=== PATIENT | male | born 1995 | race Caucasian/White ===

== ENCOUNTER 2017-01-07 14:34 | Emergency (ER) | payer BC ==
--- NOTE | 2017-01-07 14:52 | EDM.PDOC ---
ED HPI GENERAL MEDICAL PROBLEM - General Stated Complaint: INJURED R THUMB Time Seen by Provider: 01/07/17 14:39 Source of Information: Reports: Patient History Limitations: Reports: No Limitations - History of Present Illness INITIAL COMMENTS - FREE TEXT/NARRATIVE: Patient presents with injury to right thumb that happened about 10 minutes prior to arrival when he got his thumb pinched/crushed in a hydraulic endgate on a grain cart. No numbness and can wiggle the thumb, but hurts when he tries to flex the IP joint. No other injuries. Last tetanus was August 2009 from clinic records. - Related Data Allergies Allergy/AdvReac Type Severity Reaction Status Date / Time No Known Drug Allergies Allergy Cannot Verified 01/07/17 15:03 Remember Home Meds: Home Meds Fludrocortisone Acetate [Fludrocortisone Acetate] 1.5 tab PO DAILY 11/04/14 [ History] predniSONE [Prednisone] 5 mg PO BID 09/28/15 [History] Past Medical History - Past Health History Medical/Surgical History: Denies Medical/Surgical History Other HEENT History: wisdom teeth out Gastrointestinal History: Reports: Other (See Below) Other Gastrointestinal History: upset stomach and diarrhea x 7 days Musculoskeletal History: Reports: Other (See Below) Other Musculoskeletal History: arm fracture with pins Endocrine/Metabolic History: Reports: Other (See Below) Other Endocrine/Metabolic History: adrenal hyperplasia since - Infectious Disease History Infectious Disease History: Reports: None - Past Surgical History Other HEENT Surgeries/Procedures: surgery to open sagital suture at 6 months old. Endocrine Surgical History: Reports: None Musculoskeletal Surgical History: Reports: None Social & Family History - Tobacco Use Smoking Status *Q: Never Smoker - Alcohol Use Days Per Week of Alcohol Use: 0 - Recreational Drug Use Recreational Drug Use: No Review of Systems - Review of Systems Review Of Systems: See Below Constitutional: Denies: Chills, Fever, Weakness Eyes: Denies: Vision Change Ears: Denies: Dizziness Nose: Denies: Epistaxis Mouth/Throat: Denies: Painful Swallowing Respiratory: Denies: Shortness of Breath, Cough Cardiovascular: Denies: Chest Pain, Syncope GI/Abdominal: Denies: Abdominal Pain, Nausea, Vomiting Musculoskeletal: Reports: Hand Pain. Denies: Neck Pain, Shoulder Pain, Arm Pain , Back Pain, Leg Pain Skin: Denies: Cyanosis, Jaundice, Mottled, Pallor, Diaphoresis Neurological: Denies: Confusion, Dizziness, Headache, Numbness, Seizure, Syncope ED EXAM, GENERAL - Physical Exam Exam: See Below Exam Limited By: No Limitations General Appearance: Alert, WD/WN, No Apparent Distress Eye Exam: Bilateral Eye: EOMI, Normal Inspection, PERRL Ears: Normal External Exam, Hearing Grossly Normal Nose: Normal Inspection, No Blood Throat/Mouth: Normal Lips, Normal Voice, No Airway Compromise Head: Atraumatic, Normocephalic Neck: Full Range of Motion Respiratory/Chest: No Respiratory Distress, Lungs Clear, Normal Breath Sounds Cardiovascular: Regular Rate, Rhythm, No Murmur Back Exam: Full Range of Motion Extremities: Other (Right thumb has open wound at mid volar proximal phalanx. Sensation and cap refill are good throughout. It hurts to flex IP joint at all but patient can wiggle the whole thumb a little. No significant deformity is evident. The skin appears viable. ) Course - Orders/Labs/Meds Orders: Active Orders 24 hr Category Date Time Status Hand Comp Min 3V Rt [CR] Stat Exams 01/07/17 14:45 Ordered - Re-Assessments/Exams Free Text/Narrative Re-Assessment/Exam: 01/07/17 15:20 Xrays reveal a moderately displaced comminuted fracture of the distal 1/3 of proximal phalanx of right thumb involving the IP joint space. This is an open fracture. Patient has been soaking thumb in Hibiclens solution for more than 30 minutes in ER and declines anything for pain control at this time. He says his last food or drink was 1130 this morning. I discussed this with Dr. Frazier (orthopedic/hand) in [facility] who accepted patient for transfer via private vehicle. Patient is given TDAP and 2 g of ancef IV here in ER prior to discharge. Patient strictly instructed to remain NPO until he gets to the [facility]. His mother is here and will be driving him. Departure - Departure Time of Disposition: 15:15 Disposition: Home, Self-Care 01 Condition: Good Clinical Impression: Open fracture of right thumb Qualifiers: Encounter type: initial encounter Phalanx: proximal Fracture alignment: displaced Qualified Code(s): S62.511B - Displaced fracture of proximal phalanx of right thumb, initial encounter for open fracture - Discharge Information Referrals: Bishop Ervin MD [Primary Care Provider] - Additional Instructions: 1. Go directly to the ER at the [facility] in [place] where they will call Dr. Frazier (orthopedic/hand surgeon) to come in and see you. You won't be an ER patient there. 2. Don't eat or drink anything before you arrive there. - My Orders Last 24 Hours: My Active Orders 01/07/17 14:45 Hand Comp Min 3V Rt [CR] Stat - Assessment/Plan Last 24 Hours: My Active Orders 01/07/17 14:45 Hand Comp Min 3V Rt [CR] Stat
[2017-01-07] MEDS ORDERED: ceFAZolin 2 GM in Sodium Chloride 0.9% 50 ML IV ONE (15:10)
[2017-01-07] MEDS ORDERED: Diphtheria,Pertussis(Acell),Tetanus Vaccine 0.5 ML SDV IM ONE (15:15)
[2017-01-07] MEDS ORDERED: Sodium Chloride 0.9% 500 ML ONE (15:17)
[2017-01-07 20:56] VITALS: BP 140/88
[2017-01-10] MEDS ORDERED: Sodium Chloride 0.9% 500 ML IV SCH (16:30)
== END 2017-01-07 15:50 | disposition home or self-care (01) ==
LOC: KA.ED 14:34
DX: S62.511B Displaced fracture of proximal phalanx of right thumb, initial encounter for open fracture (principal); Z23 Encounter for immunization; Z79.899 Other long term (current) drug therapy; W23.0XXA Caught, crushed, jammed, or pinched between moving objects, initial encounter
CPT/HCPCS: 73140; 90471; 90715; 96365; 99283; J0690; J7040; J7050

== ENCOUNTER 2020-04-01 20:15 | Emergency (ER) | payer BC, OTHER ==
[2020-04-01] MEDS ORDERED: Sodium Chloride 0.9% 10 ML Syringe FLUSH PRN (20:26)
[2020-04-01 20:32] VITALS: BP 130/92; PULSE 79
[2020-04-01] MEDS: Sodium Chloride 0.9% 1,000 ML IV ONE (20:38)
--- NOTE | 2020-04-01 20:43 | EDM.PDOC ---
ED HPI GENERAL MEDICAL PROBLEM - General Chief Complaint: General Stated Complaint: dehydrated Time Seen by Provider: 04/01/20 20:43 Source of Information: Reports: Patient - History of Present Illness INITIAL COMMENTS - FREE TEXT/NARRATIVE: Cesar, 24-year-old male, presents to the emergency department with a complaint of dehydration. He has congenital adrenal hyperplasia and in general has been doing quite well. He states he has felt getting dehydrated the past day and late today this evening started developing generalized body aches and feelings of dehydration similar to his event 2 years ago when he required IV fluid. He has been sipping on Gatorade and trying to drink enough water, but feels he is not able to maintain his balance and intake. Urine may be slightly darker, denying any cramping or pain. Denies any COVID-19 symptoms, states he was tested 2 weeks ago and was negative at that time, with no known exposure or risks since then. He is compliant on his steroid medication and denies any recent illness that would have precipitated dehydration. Onset: Today, Gradual Duration: Hour(s):, Getting Worse Location: Reports: Generalized Quality: Reports: Ache Severity: Moderate Improves with: Reports: None Worsens with: Reports: None Context: Reports: Other Associated Symptoms: Reports: No Other Symptoms - Related Data Allergies Allergy/AdvReac Type Severity Reaction Status Date / Time No Known Drug Allergies Allergy Cannot Verified 04/01/20 20:33 Remember Home Meds: Home Meds Fludrocortisone Acetate 1 tab PO DAILY 11/04/14 [History] predniSONE [Prednisone] 5 mg PO BID 09/28/15 [History] Potassium Chloride 20 meq PO DAILY 7 Days #7 tablet.er 04/01/20 [Rx] Past Medical History - Past Health History Medical/Surgical History: Denies Medical/Surgical History Other HEENT History: wisdom teeth out Gastrointestinal History: Reports: Other (See Below) Other Gastrointestinal History: upset stomach and diarrhea x 7 days Other Genitourinary History: adrenal hyperplasia Musculoskeletal History: Reports: Other (See Below) Other Musculoskeletal History: arm fracture with pins Endocrine/Metabolic History: Reports: Other (See Below) Other Endocrine/Metabolic History: adrenal hyperplasia since ; takes prednisone daily - Infectious Disease History Infectious Disease History: Reports: None - Past Surgical History Other HEENT Surgeries/Procedures: surgery to open sagital suture at 6 months old. Endocrine Surgical History: Reports: None Musculoskeletal Surgical History: Reports: None Social & Family History - Family History Family Medical History: No Pertinent Family History Endocrine/Metabolic: Reports: Other (See Below) (Sibling also has adrenal hyperplasia) - Caffeine Use Caffeine Use: Reports: Soda ED ROS GENERAL - Review of Systems Review Of Systems: Comprehensive ROS is negative, except as noted in HPI. Constitutional: Reports: No Symptoms HEENT: Reports: No Symptoms Respiratory: Reports: No Symptoms Cardiovascular: Reports: No Symptoms Endocrine: Reports: No Symptoms GI/Abdominal: Reports: No Symptoms : Reports: No Symptoms Musculoskeletal: Reports: Muscle Pain Skin: Reports: No Symptoms Neurological: Reports: No Symptoms Psychiatric: Reports: No Symptoms Hematologic/Lymphatic: Reports: No Symptoms Immunologic: Reports: No Symptoms ED EXAM, GENERAL - Physical Exam Exam: See Below Free Text/Narrative:: Alert, oriented, cheerful conversing freely. HEENT is negative discharge or deformity. Briar mucous membranes with moisture noted. Neck is soft supple no lymphadenopathy. Thorax is clear throughout with no wheezes nor crackles. Cardiac is regular S1-S2 I do not appreciate any murmur. Abdomen is soft bowel sounds are present no tenderness nor organomegaly to palpation. There is no edema to the extremities. Radial pulse correlates with apical heart rate and skin is warm and dry. He is semifowler on the cart conversing freely resting comfortably denying any complaint other than his attributed symptoms secondary of his congenital diagnosis. Course - Vital Signs Last Recorded V/S: Last Vital Signs Temp 99.1 F 04/01/20 20:20 Pulse 79 04/01/20 20:20 Resp 18 04/01/20 20:20 BP 130/92 H 04/01/20 20:20 Pulse Ox 96 04/01/20 20:20 - Orders/Labs/Meds Orders: Active Orders 24 hr Category Date Time Status Peripheral IV Care [RC] . DIRECTED Care 04/01/20 20:26 Active Sodium Chloride 0.9% [Normal Saline] 500 ml Med 04/01/20 21:45 Active IV .BOLUS Sodium Chloride 0.9% [Saline Flush] Med 04/01/20 20:26 Active 10 ml FLUSH Q8HR PRN Peripheral IV Insertion Adult [OM.PC] Routine Oth 04/01/20 20:26 Ordered Medication Orders Sodium Chloride (Normal Saline) 500 mls @ 999 mls/hr IV .BOLUS SOCORRO Last Admin: 04/01/20 21:38 Dose: 999 mls/hr Documented by: MICHAEL Sodium Chloride (Saline Flush) 10 ml FLUSH Q8HR PRN PRN Reason: keep vein open Labs: Laboratory Tests 04/01/20 04/01/20 Range/Units 20:30 20:30 WBC 5.28 (5.00-10.00) 10^3/uL RBC 4.79 (4.50-6.00) 10^6/uL Hgb 14.3 (13.0-17.0) g/dL Hct 42.1 (40.0-52.0) % MCV 87.9 (82.0-92.0) fL MCH 29.9 (27.0-31.0) pg MCHC 34.0 (32.0-36.0) g/dL RDW 12.1 (11.5-14.5) % Plt Count 198 (150-400) 10^3/uL MPV 9.4 (7.4-10.4) fL Immature Gran % (Auto) 0.2 (0.0-5.0) % Neut % (Auto) 42.0 L (50.0-70.0) % Lymph % (Auto) 40.0 (20.0-40.0) % Ida % (Auto) 11.7 H (2.0-8.0) % Eos % (Auto) 5.5 H (1.0-3.0) % Baso % (Auto) 0.6 (0.0-1.0) % Neut # (Auto) 2.22 L (2.50-7.00) 10^3/uL Lymph # (Auto) 2.11 (1.00-4.00) 10^3/uL Ida # (Auto) 0.62 (0.10-0.80) 10^3/uL Eos # (Auto) 0.29 (0.10-0.30) 10^3/uL Baso # (Auto) 0.03 (0.00-0.10) 10^3/uL Immature Gran # (Auto) 0.01 (0.00-0.50) 10^3/uL Sodium 140 (136-145) mmol/L Potassium 3.2 L (3.5-5.1) mmol/L Chloride 102 (98-107) mmol/L Carbon Dioxide 25.0 (21.0-32.0) mmol/L Anion Gap 16.2 H (5-15) mmol/L BUN 18 (7-18) mg/dL Creatinine 0.88 (0.51-1.17) mg/dL Est Cr Clr Drug Dosing 122.49 mL/min Estimated GFR (MDRD) > 60 mL/min Glucose 79 (70-140) mg/dL Calcium 8.8 (8.7-10.3) mg/dL Meds: Medications Generic Name Dose Route Start Last Admin Trade Name Freq PRN Reason Stop Dose Admin Sodium Chloride 500 mls @ 999 mls/hr 04/01/20 21:45 04/01/20 21:38 Normal Saline IV 999 mls/hr .BOLUS SOCORRO Administration Sodium Chloride 10 ml 04/01/20 20:26 Saline Flush FLUSH Q8HR PRN keep vein open Discontinued Medications Generic Name Dose Route Start Last Admin Trade Name Freq PRN Reason Stop Dose Admin Sodium Chloride 1,000 mls @ 999 mls/hr 04/01/20 20:26 04/01/20 20:38 Normal Saline IV 04/01/20 21:26 999 mls/hr .BOLUS ONE Administration Potassium Chloride 20 meq 04/01/20 21:32 04/01/20 21:38 Klor-Con 10 PO 04/01/20 21:33 20 meq ONETIME ONE Administration - Re-Assessments/Exams Free Text/Narrative Re-Assessment/Exam: 04/01/20 21:35 .Cesar is feeling somewhat better after nearly a liter of fluid infused. I advised him potassium levels have dropped down which is likely what is adding to his muscle aches. We will give another 500 mL normal saline IV. Discussed giving potassium IV which he states he would rather do oral with food as to be able to go home in the next half hour. 20 mEq of potassium chloride will be given p.o. along with a sandwich here in the department and continue with daily potassium diet intake and daily potassium supplement for the next week to be rechecked in the clinic at his convenience. Departure - Departure Time of Disposition: 22:08 Disposition: Home, Self-Care 01 Condition: Good Clinical Impression: Hypokalemia, Adrenal congenital hyperplasia, Dehydration symptoms - Discharge Information *PRESCRIPTION DRUG MONITORING PROGRAM REVIEWED*: Not Applicable *COPY OF PRESCRIPTION DRUG MONITORING REPORT IN PATIENT SANTO: Not Applicable Prescriptions: Potassium Chloride 20 meq PO DAILY 7 Days #7 tablet.er Instructions: Hypokalemia, Potassium Content of Foods Referrals: Bishop Ervin MD [Primary Care Provider] - Forms: ED Department Discharge Additional Instructions: Your potassium is slightly low tonight, which may be contributing to your muscle complaints and symptoms. Continue with your steroid treatment as directed. We will give you potassium chloride tablets 20 mEq 1 to be taken daily for the next 7 days with food. You need to consider eating foods that are high in potassium such as bananas, potatoes, and potato pillings. You will need to call your clinic and have your potassium level rechecked in 1 week's time. In the event that it still is running low despite potassium containing foods as well as the oral supplement we have ordered for the next 7 days, consideration for your provider to place you on daily potassium supplement may be given. Make sure you maintain adequate fluid hydration, which may be water or electrolyte supplement, avoiding caffeine or at least using it in moderation as caffeinated products increase your urination. Follow-up with your clinic in 1 week's time for recheck on your potassium. Sooner if not showing improvement, or return to the emergency department as needed. Sepsis Event Note (ED) - Evaluation Sepsis Screening Result: No Definite Risk - Focused Exam Vital Signs: Vital Signs Temp Pulse Resp BP Pulse Ox 04/01/20 20:20 99.1 F 79 18 130/92 H 96 - Problem List & Annotations (1) Adrenal congenital hyperplasia SNOMED Code(s): 977198783 Code(s): E25.0 - CONGENITAL ADRENOGENITAL DISORDERS ASSOC W ENZYME DEFICIENCY Status: Acute Priority: High (2) Dehydration symptoms SNOMED Code(s): 322609371 Code(s): R63.8 - OTHER SYMPTOMS AND SIGNS CONCERNING FOOD AND FLUID INTAKE Status: Acute Priority: High (3) Hypokalemia SNOMED Code(s): 23627241 Code(s): E87.6 - HYPOKALEMIA Status: Acute - Problem List Review Problem List Initiated/Reviewed/Updated: Yes - My Orders Last 24 Hours: My Active Orders 04/01/20 20:26 Peripheral IV Care [RC] . DIRECTED Sodium Chloride 0.9% [Saline Flush] 10 ml FLUSH Q8HR PRN Peripheral IV Insertion Adult [OM.PC] Routine 04/01/20 21:45 Sodium Chloride 0.9% [Normal Saline] 500 ml IV .BOLUS - Assessment/Plan Last 24 Hours: My Active Orders 04/01/20 20:26 Peripheral IV Care [RC] . DIRECTED Sodium Chloride 0.9% [Saline Flush] 10 ml FLUSH Q8HR PRN Peripheral IV Insertion Adult [OM.PC] Routine 04/01/20 21:45 Sodium Chloride 0.9% [Normal Saline] 500 ml IV .BOLUS Plan: Your potassium is slightly low tonight, which may be contributing to your muscle complaints and symptoms. Continue with your steroid treatment as directed. We will give you potassium chloride tablets 20 mEq 1 to be taken daily for the next 7 days with food. You need to consider eating foods that are high in potassium such as bananas, potatoes, and potato pillings. You will need to call your clinic and have your potassium level rechecked in 1 week's time. In the event that it still is running low despite potassium containing foods as well as the oral supplement we have ordered for the next 7 days, consideration for your provider to place you on daily potassium supplement may be given. Make sure you maintain adequate fluid hydration, which may be water or electrolyte supplement, avoiding caffeine or at least using it in moderation as caffeinated products increase your urination. Follow-up with your clinic in 1 week's time for recheck on your potassium. Sooner if not showing improvement, or return to the emergency department as needed.
[2020-04-01 21:13] LABS: ANION GAP 16.2 mmol/L (5-15); CHLORIDE,CL 102 mmol/L (98-107); SODIUM,NA 140 mmol/L (136-145)
[2020-04-01] MEDS: Potassium Chloride 10 MEQ Tab.ER PO ONE (21:38)
[2020-04-01] MEDS: Sodium Chloride 0.9% 500 ML IV SCH (21:38)
== END 2020-04-01 22:16 | disposition home or self-care (01) ==
LOC: KA.ED 20:15
DX: E87.6 Hypokalemia (principal)
CPT/HCPCS: 80048; 85025; 99284; A9270-GY; J7030; J7040

== ENCOUNTER 2021-06-07 12:22 | Emergency (ER) | payer OTHER ==
[2021-06-07] MEDS ORDERED: Sodium Chloride 0.9% 1,000 ML IV ONE (13:26)
[2021-06-07] MEDS ORDERED: Ondansetron 4 MG/2 ML SDV IVPUSH ONE (13:26)
[2021-06-07 14:02] LABS: ANION GAP 14.2 mmol/L (5-15); CHLORIDE,CL 101 mmol/L (98-107); SODIUM,NA 139 mmol/L (136-145)
[2021-06-07 15:41] LABS: THC SCREEN,URINE 50 NG/ML NEGATIVE (NEGATIVE)
[2021-06-07 15:44] LABS: TCA SCREEN,URINE NEGATIVE (NEGATIVE)
[2021-06-07 15:45] LABS: BARBITURATE SCREEN,URINE NEGATIVE (NEGATIVE); BENZODIAZEPINES SCREEN,URINE NEGATIVE (NEGATIVE)
[2021-06-07] MEDS ORDERED: Ondansetron 4 MG Tab.DIS PO ONE (15:55)
[2021-06-07 18:50] VITALS: BP 133/68; PULSE 88
== END 2021-06-07 16:05 | disposition home or self-care (01) ==
LOC: KA.ED 12:22
DX: R11.2 Nausea with vomiting, unspecified (principal); E86.0 Dehydration
CPT/HCPCS: 36415; 80053; 80305-QW; 81001; 85025; 96374; 99284; 99284-25; J2405; J7030

== ENCOUNTER 2021-06-08 19:20 | Emergency (ER) | payer OTHER ==
[2021-06-08] MEDS ORDERED: Lactated Ringers 1,000 ML IV ONE ×2 (19:44→20:14)
[2021-06-08 20:19] LABS: ANION GAP 12.2 mmol/L (5-15); CHLORIDE,CL 99 mmol/L (98-107); SODIUM,NA 138 mmol/L (136-145)
[2021-06-08] MEDS ORDERED: Ondansetron 4 MG/2 ML SDV IVPUSH ONE (20:34)
[2021-06-08 21:26] VITALS: BP 133/78; PULSE 78
== END 2021-06-08 21:30 | disposition home or self-care (01) ==
LOC: KA.ED 19:20
DX: R53.83 Other fatigue (principal); B34.9 Viral infection, unspecified; E86.0 Dehydration; E25.0 Congenital adrenogenital disorders associated with enzyme deficiency
CPT/HCPCS: 36415; 80053; 81001; 85025; 96374; 99283-25; 99284; J2405; J7120

== ENCOUNTER 2023-10-13 22:53 | Emergency (ER) | payer OTHER ==
[2023-10-13] MEDS: Doxycycline Monohydrate 100 MG Cap PO ONE (23:19)
[2023-10-14 04:36] VITALS: BP 134/93; PULSE 84
[2023-10-17 14:07] LABS: LYME EIA IGG 0.39 IV (<=0.90); LYME EIA IGM 0.78 IV (<=0.90); LYME MOD 2-TIER TESTING INTERP Negative (Negative); LYME VLSE1/PEPC10 ABS, ELISA 1.26 IV (<=0.90)
== END 2023-10-13 23:41 | disposition home or self-care (01) ==
LOC: KA.ED 22:53
DX: Z20.818 Contact with and (suspected) exposure to other bacterial communicable diseases (principal)
CPT/HCPCS: 36415; 86618; 99283; A9270-GY